=== PATIENT | female | born 2005 | race Caucasian/White ===

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

== ENCOUNTER 2023-05-19 19:16 | Emergency (ER) | payer SELFPAY ==
[~2023-05-19] VITALS: Ht 160 cm; Wt 99.8 kg
[~2023-05-19 19:16] MED LIST changes: +FAMO-92 PO; +ONDA-188 PO; +SIME125T38 PO
[2023-05-19 20:26] VITALS: BP 149/79; PULSE 88; RESP 20; TEMP 98; O2SAT 98
[2023-05-19] MEDS ORDERED: KETOROLAC 30 MG/ML VIAL IM ONE (22:30)
[2023-05-19] MEDS ORDERED: HYDROcodone/APAP 5/325 MG 1 TAB TAB PO ONE (22:35)
[2023-05-19] MEDS ORDERED: NAPR-54 PO (23:00)
[2023-05-19] MEDS ORDERED: ACET-8905 PO (23:00)
[2023-05-19 23:23] VITALS: BP 149/79; PULSE 88; RESP 20; TEMP 98; O2SAT 98
== END 2023-05-19 23:23 | disposition home or self-care (01) ==
LOC: MED 19:16
DX: M54.30 Sciatica, unspecified side (principal); M54.50 Low back pain, unspecified; Z79.899 Other long term (current) drug therapy
CPT/HCPCS: 81025; 96372; 99283; J1885